=== PATIENT | male | born 1985 | race Caucasian/White ===

== ENCOUNTER 2017-01-30 13:11 | Inpatient (IN) | payer OTHER ==
[2017-01-30 14:34] VITALS: BMI 24.8
--- NOTE | 2017-01-30 16:21 | HP ---
CIWA Score - CIWA Score Nausea/Vomitin Muscle Tremors: 3 Anxiety: 3 Agitation: 3 Paroxysmal Sweats: 2 Orientation: 0-Oriented Tacttile Disturbances: 2-Mild Itch/Numbness/Burn Auditory Disturbances: 2-Mild Harshness/Frighten Visual Disturbances: 2-Mild Sensitivity Headache: 2-Mild CIWA-Ar Total Score: 22 Admission ROS [facility] - HPI Chief Complaint: i need help to stop drinking alcohol,cocaine,marijuana,mmtp 60 mgs/daymlast medicated today,has bottle to take home for 01/31/17 last treatment ,[facility] 11/11 completed hiv since 2007 history of add,anxiety and ptsd longest period of sobriety 18months nicotine dependence weight loss Allergies/Adverse Reactions: Allergies Allergy/AdvReac Type Severity Reaction Status Date / Time No Known Drug Allergies Allergy Verified 01/30/17 17:21 iv contrast Allergy Uncoded 01/30/17 16:25 History of Present Illness: this 31 years old male with alcohol,cocaine,cannabis dependence and heroin abused,seeking detox as mentioned - Ebola screening Have you traveled outside of the country in the last 21 days: No Have you had contact with anyone from an Ebola affected area: No Have you been sick,other than usual withdrawal symptoms: No Do you have a fever: No - Review of Systems Constitutional: Loss of Appetite, Malaise, Night Sweats, Changes in sleep, Weakness, Unintentional Wgt. Loss EENT: reports: Nose Congestion Respiratory: reports: No Symptoms reported Cardiac: reports: No Symptoms Reported GI: reports: Diarrhea, Nausea, Vomiting, Abdominal cramping : reports: No Symptoms Reported Musculoskeletal: reports: Back Pain, Muscle Pain Integumentary: reports: Dryness Neuro: reports: Headache, Tremors Endocrine: reports: No Symptoms Reported Hematology: reports: No Symptoms Reported Psychiatric: reports: other (ptsd,add,ptsd) Patient History - Patient Medical History Hx Anemia: No Hx Asthma: Yes (albureol inhaler) Hx Chronic Obstructive Pulmonary Disease (COPD): No Hx Cancer: No Hx Cardiac Disorders: No Hx Congestive Heart Failure: No Hx Hypertension: No Hx Hypercholesterolemia: No Hx Pacemaker: No HX Cerebrovascular Accident: No Hx Seizures: Yes (last 16 years ago) Hx Dementia: No Hx Diabetes: No Hx Gastrointestinal Disorders: No Hx Liver Disease: No Hx Genitourinary Disorders: No Hx Sexually Transmitted Disorders: No Hx Renal Disease (ESRD): No Hx Thyroid Disease: No Hx Human Immunodeficiency Virus (HIV): Yes (since 2007) Hx Hepatitis C: No Hx Depression: No Hx Suicide Attempt: No Hx Bipolar Disorder: No Hx Schizophrenia: No Other Medical History: anxiety,ptsd,add - Patient Surgical History Past Surgical History: Yes Other Surgical History: fracture of mandibles 8 weeks ago liliana lebranon numbness of chin - PPD History Previous Implant?: Yes Documented Results: Negative w/o proof PPD to be Administered?: Yes - Smoking Cessation Smoking history: Current every day smoker Aproximately how many cigarettes per day: 20 Hx Chewing Tobacco Use: No Initiated information on smoking cessation: Yes 'Breaking Loose' booklet given: 01/30/17 - Substance & Tx. History Hx Alcohol Use: Yes Hx Substance Use: Yes Substance Use Type: Alcohol, Cocaine, Marijuana Hx Substance Use Treatment: Yes ([facility] in 11/11) - Substances Abused Alcohol Route: Oral Frequency: Daily Amount used: 3pints of vodka/6 of 12 ozs of beer Age of first use: 14 Date of Last Use: 01/29/17 Cocaine Route: Injection Frequency: Daily Amount used: 50$ Age of first use: 16 Date of Last Use: 01/29/17 Marijuana/Hashish Route: Smoking Frequency: 3-6 times per week Amount used: 5$ Age of first use: 10 Date of Last Use: 01/26/17 Heroin Route: Injection Frequency: Daily Amount used: 8 to 12 bags Age of first use: 16 Date of Last Use: 01/29/17 Family Disease History - Family Disease History Family History: Denies Admission Physical Exam [facility] - Vital Signs Vital Signs: Vital Signs - 24 hr 01/30/17 14:31 Temperature 97.1 F L Pulse Rate 79 Respiratory 20 Rate Blood Pressure 126/71 - Physical General Appearance: Yes: Moderate Distress, Tremorous, Irritable, Sweating, Anxious HEENTM: Yes: Normal ENT Inspection, MEHNAZ, Pharynx Normal Respiratory: Yes: Lungs Clear, Normal Breath Sounds, No Respiratory Distress Neck: Yes: Within Normal Limits, Supple, Trachea in good position Breast: Yes: Within Normal Limits Cardiology: Yes: Within Normal Limits, Regular Rhythm, Regular Rate, S1, S2 Abdominal: Yes: Within Normal Limits, Normal Bowel Sounds, Non Tender, Soft Genitourinary: Yes: Within Normal Limits Back: Yes: Muscle Spasm Musculoskeletal: Yes: Back pain, Muscle Pain Extremities: Yes: Tremors Neurological: Yes: barrel plater II-XII NML intact, Fully Oriented, Alert, Motor Strength 5/5 Integumentary: Yes: Dry, Track Meza - Diagnostic (1) Alcohol dependence with uncomplicated withdrawal Current Visit: Yes Status: Acute (2) Cocaine dependence Current Visit: Yes Status: Acute (3) Cannabis dependence Current Visit: Yes Status: Acute (4) Methadone maintenance therapy patient Current Visit: Yes Status: Acute (5) Asthma Current Visit: Yes Status: Acute (6) HIV (human immunodeficiency virus infection) Current Visit: Yes Status: Acute (7) Neuropathy Current Visit: Yes Status: Acute (8) Heroin abuse Current Visit: Yes Status: Acute (9) Anxiety Current Visit: Yes Status: Acute (10) ADD (attention deficit disorder) Current Visit: Yes Status: Acute (11) PTSD (post-traumatic stress disorder) Current Visit: Yes Status: Acute (12) History of mandibular surgery Current Visit: Yes Status: Acute Cleared for Admission [facility] - Detox or Rehab [facility] Level of Care: Medically Managed Detox Regimen/Protocol: Valium [facility] Breath Alcohol Content Breath Alcohol Content: 0 Urine Drug Screen - Results Drug Screen Negative: No Urine Drug Screen Results: THC-Marijuana, CHAD-Cocaine, OPI-Opiates, BAR- Barbiturates, MTD-Methadone
[2017-01-30] MEDS ORDERED: MAG HYDROX/AL HYDROX/SIMETH 30 ML UNIT-DOSE CUP PO PRN (16:47)
[2017-01-30] MEDS ORDERED: diazePAM 5 MG TABLET PO ONE (16:47)
[2017-01-30] MEDS ORDERED: LOPERAMIDE HCL 2 MG CAPSULE PO PRN (16:47)
[2017-01-30] MEDS ORDERED: MAGNESIUM CITRATE 300 ML BOTTLE PO PRN (16:47)
[2017-01-30] MEDS ORDERED: ACETAMINOPHEN 325 MG TABLET (FP) PO PRN (16:47)
[2017-01-30] MEDS ORDERED: guaiFENesin/D-METHORPHAN HB 10 ML UNIT-DOSE CUPS PO PRN (16:47)
[2017-01-30] MEDS ORDERED: hydrOXYzine PAMOATE 50 MG CAPSULE (FP) PO PRN (16:47)
[2017-01-30] MEDS ORDERED: diphenhydrAMINE HCL 50 MG CAPSULE PO PRN (16:47)
[2017-01-30] MEDS ORDERED: P-EPHED 60MG/TRIPROLIDI 2.5MG TABLET PO PRN (16:47)
[2017-01-30] MEDS ORDERED: MAGNESIUM HYDROX 2400MG/30ML ORAL SUSPENSION 30 ML CUP PO PRN (16:47)
[2017-01-30] MEDS ORDERED: IBUPROFEN 400 MG TABLET (FP) PO PRN (16:47)
[2017-01-30] MEDS ORDERED: MENTHOL/PHENOL 1 EACH UD MM PRN (16:47)
[2017-01-30] MEDS: NICOTINE 21 MG/24 HOURS TOPICAL PATCH TD SCH (18:23)
[2017-01-30] MEDS: NICOTINE POLACRILEX 2 MG GUM BUC PRN ×2 (18:25→22:44)
[2017-01-30] MEDS ORDERED: ALBUTEROL SO4 6.7 GM HFA INHALER IH PRN (19:00)
[2017-01-30] MEDS: GABAPENTIN 400 MG CAPSULE (FP) PO SCH (22:43)
[2017-01-30] MEDS: diazePAM 5 MG TABLET PO SCH (22:43)
[2017-01-30] MEDS: THIAMINE HCL 100 MG TABLET (FP) PO SCH (22:43)
[2017-01-30 22:55] LABS: URINE APPEARANCE SLCLOUDY; URINE BILIRUBIN NEGATIVE (NEGATIVE); URINE BLOOD NEGATIVE (NEGATIVE); URINE COLOR YELLOW; URINE GLUCOSE (UA) NEGATIVE (NEGATIVE); URINE KETONE NEGATIVE (NEGATIVE); URINE LEUK ESTERASE TRACE (NEGATIVE); URINE NITRITE NEGATIVE (NEGATIVE); URINE PROTEIN NEGATIVE (NEGATIVE); URINE UROBILINOGEN NEGATIVE mg/dL (0.2-1.0)
[2017-01-30 23:15] LABS: URINE HYALINE CAST 52 /lpf; URINE MUCUS MANY; URINE WBC 1 /hpf (3-5)
[2017-01-31] MEDS ORDERED: METHADONE HCL 40 MG DISPERSABLE TABLET ONE (05:09)
[2017-01-31] MEDS ORDERED: METHADONE HCL 10 MG TABLET ONE (05:10)
[2017-01-31] MEDS: diazePAM 5 MG TABLET PO SCH ×3 (05:27→22:51)
[2017-01-31] MEDS: GABAPENTIN 400 MG CAPSULE (FP) PO SCH ×3 (05:27→22:51)
[2017-01-31] MEDS: NICOTINE POLACRILEX 2 MG GUM BUC PRN ×4 (05:30→18:29)
[2017-01-31] MEDS ORDERED: METHADONE HCL 10 MG TABLET PO ONE (06:00)
[2017-01-31] MEDS ORDERED: METHADONE 40 MG, METHADONE 20 MG PO ONE (06:00)
[2017-01-31 09:25] LABS: MCHC 33.5 g/dl (32.0-35.9); MEAN CELL VOLUME 89.7 fl (80-96); MEAN PLT VOLUME 8.6 fl (7.5-11.1); PLATELET COUNT 250 K/MM3 (134-434); RDW 14.7 % (11.9-15.9); WHITE BLOOD COUNT 4.7 K/mm3 (4.0-10.0)
[2017-01-31 09:47] LABS: ALBUMIN 2.9 g/dl (3.4-5.0); ANION GAP 5 (8-16); BILIRUBIN,TOTAL 0.1 mg/dL (0.2-1.0); CO2 31 mmol/L (21-32); CREATININE 0.7 mg/dL (0.7-1.3); GLUCOSE,RANDOM 86 mg/dL (74-106); SGOT/AST 18 U/L (15-37); SGPT/ALT 20 U/L (12-78)
[2017-01-31 09:48] LABS: ALK PHOS 79 U/L (45-117)
[2017-01-31] MEDS: NICOTINE 21 MG/24 HOURS TOPICAL PATCH TD SCH (10:38)
[2017-01-31] MEDS: PRENATAL VITAMINS W/ FOLIC ACID TABLET (FP) PO SCH (10:38)
[2017-01-31] MEDS: diazePAM 5 MG TABLET PO PRN ×2 (10:40→18:28)
--- NOTE | 2017-01-31 11:52 | PN ---
S CIWA - CIWA Score Nausea/Vomitin Muscle Tremors: 3 Anxiety: 3 Agitation: 2 Paroxysmal Sweats: 2 Orientation: 0-Oriented Tacttile Disturbances: 1-Very Mild Itch/Numbness Auditory Disturbances: 1-Very Mild Visual Disturbances: 1-Very Mild Sensitivity Headache: 2-Mild CIWA-Ar Total Score: 18 S Progress Note (SOAP) Subjective: ALERT,IRRITABLE,ANXIOUS,INTERRUPTED SLEEP,TREMOR,PAIN IN THE BODY Objective: 01/31/17 11:49 Vital Signs Temperature 97.7 F 01/31/17 10:28 Pulse Rate 78 01/31/17 10:28 Respiratory Rate 16 01/31/17 10:28 Blood Pressure 113/62 01/31/17 10:28 O2 Sat by Pulse Oximetry (%) EKG NSR 62/MIN Laboratory Last Values WBC 4.7 K/mm3 (4.0-10.0) 01/31/17 07:40 RBC 4.30 M/mm3 (4.00-5.60) 01/31/17 07:40 Hgb 12.9 GM/dL (11.7-16.9) 01/31/17 07:40 Hct 38.5 % (35.4-49) 01/31/17 07:40 MCV 89.7 fl (80-96) 01/31/17 07:40 MCH 30.0 pg (25.7-33.7) 01/31/17 07:40 MCHC 33.5 g/dl (32.0-35.9) 01/31/17 07:40 RDW 14.7 % (11.9-15.9) 01/31/17 07:40 Plt Count 250 K/MM3 (134-434) 01/31/17 07:40 MPV 8.6 fl (7.5-11.1) 01/31/17 07:40 Sodium 140 mmol/L (136-145) 01/31/17 07:40 Potassium 3.9 mmol/L (3.5-5.1) 01/31/17 07:40 Chloride 104 mmol/L (98-107) 01/31/17 07:40 Carbon Dioxide 31 mmol/L (21-32) 01/31/17 07:40 Anion Gap 5 (8-16) L 01/31/17 07:40 BUN 7 mg/dL (7-18) 01/31/17 07:40 Creatinine 0.7 mg/dL (0.7-1.3) 01/31/17 07:40 Creat Clearance w eGFR > 60 (>60) 01/31/17 07:40 Random Glucose 86 mg/dL (74-106) 01/31/17 07:40 Calcium 8.0 mg/dL (8.5-10.1) L 01/31/17 07:40 Total Bilirubin 0.1 mg/dL (0.2-1.0) L 01/31/17 07:40 AST 18 U/L (15-37) 01/31/17 07:40 ALT 20 U/L (12-78) 01/31/17 07:40 Alkaline Phosphatase 79 U/L (45-117) 01/31/17 07:40 Total Protein 6.0 g/dl (6.4-8.2) L 01/31/17 07:40 Albumin 2.9 g/dl (3.4-5.0) L 01/31/17 07:40 Urine Color Yellow 01/30/17 22:40 Urine Appearance Slcloudy 01/30/17 22:40 Urine pH 6.0 (5.0-8.0) 01/30/17 22:40 Ur Specific Ages [place] 1.025 (1.005-1.025) 01/30/17 22:40 Urine Protein Negative (NEGATIVE) 01/30/17 22:40 Urine Glucose (UA) Negative (NEGATIVE) 01/30/17 22:40 Urine Ketones Negative (NEGATIVE) 01/30/17 22:40 Urine Blood Negative (NEGATIVE) 01/30/17 22:40 Urine Nitrite Negative (NEGATIVE) 01/30/17 22:40 Urine Bilirubin Negative (NEGATIVE) 01/30/17 22:40 Urine Urobilinogen Negative mg/dL (0.2-1.0) 01/30/17 22:40 Ur Leukocyte Esterase Trace (NEGATIVE) 01/30/17 22:40 Urine RBC None /hpf (0-3) 01/30/17 22:40 Urine WBC 1 /hpf (3-5) 01/30/17 22:40 Ur Epithelial Cells Rare /hpf (FEW) 01/30/17 22:40 Hyaline Casts 52 /lpf 01/30/17 22:40 Urine Mucus Many 01/30/17 22:40 Assessment: 01/31/17 11:50 WITHDRAWAL SYMPTOM Plan: CONTINUE DETOX
[2017-01-31] MEDS: THIAMINE HCL 100 MG TABLET (FP) PO SCH (22:52)
[2017-02-01] MEDS: GABAPENTIN 400 MG CAPSULE (FP) PO SCH ×3 (06:04→22:17)
[2017-02-01] MEDS: diazePAM 5 MG TABLET PO PRN ×3 (06:04→18:11)
[2017-02-01] MEDS ORDERED: METHADONE HCL 10 MG TABLET PO SCH (08:30)
[2017-02-01] MEDS ORDERED: METHADONE HCL 40 MG DISPERSABLE TABLET ONE (09:22)
[2017-02-01] MEDS ORDERED: METHADONE HCL 10 MG TABLET ONE (09:23)
[2017-02-01] MEDS: METHADONE 40 MG, METHADONE 20 MG PO SCH (09:35)
[2017-02-01] MEDS: PRENATAL VITAMINS W/ FOLIC ACID TABLET (FP) PO SCH (10:27)
[2017-02-01] MEDS: NICOTINE 21 MG/24 HOURS TOPICAL PATCH TD SCH (10:27)
[2017-02-01] MEDS: EMTRICITAB/RILPIVIRINE/TENOFOV 1 EACH TABLET PO SCH (10:27)
[2017-02-01] MEDS: PREGABALIN 75 MG CAPSULE PO SCH ×2 (10:29→22:16)
[2017-02-01] MEDS: diazePAM 5 MG TABLET PO SCH ×2 (10:29→22:16)
[2017-02-01] MEDS: NICOTINE POLACRILEX 2 MG GUM BUC PRN ×3 (10:30→22:19)
--- NOTE | 2017-02-01 11:10 | PN ---
S CIWA - CIWA Score Nausea/Vomitin Muscle Tremors: 3 Anxiety: 3 Agitation: 2 Paroxysmal Sweats: 1-Minimal Palms Moist Orientation: 0-Oriented Tacttile Disturbances: 1-Very Mild Itch/Numbness Auditory Disturbances: 1-Very Mild Visual Disturbances: 1-Very Mild Sensitivity Headache: 1-Very Mild CIWA-Ar Total Score: 16 BHS Progress Note (SOAP) Subjective: alert,irritable,anxious,interrupted sleep,tremor Objective: 02/01/17 11:09 Vital Signs Temperature 98.4 F 02/01/17 09:55 Pulse Rate 76 02/01/17 09:55 Respiratory Rate 18 02/01/17 09:55 Blood Pressure 116/74 02/01/17 09:55 O2 Sat by Pulse Oximetry (%) Assessment: 02/01/17 11:10 withdrawal symptom Plan: continue detox
--- NOTE | 2017-02-01 11:13 | CONSULT ---
[facility] Psychiatric Consult - Data Date of interview: 02/01/17 Admission source: [facility] Identifying data: This is 31 years old male with no psychiatoirc hospoitalization history intoxicated with: Alcohol, Cocaine, Heroin and Nicotine Substance Abuse History: - Smoking Cessation. Smoking history: Current every day smoker. Aproximately how many cigarettes per day: 20. Hx Chewing Tobacco Use: No. Initiated information on smoking cessation: Yes. 'Breaking Loose' booklet given: 01/30/17. - Substance & Tx. History. Hx Alcohol Use: Yes. Hx Substance Use: Yes. Substance Use Type: Alcohol, Cocaine, Marijuana. Hx Substance Use Treatment: Yes ([facility] in 11/11). - Substances Abused. Alcohol. Route: Oral. Frequency: Daily. Amount used: 3pints of vodka/6 of 12 ozs of beer. Age of first use: 14. Date of Last Use: 01/29/17. Cocaine. Route: Injection. Frequency: Daily. Amount used: 50$. Age of first use: 16. Date of Last Use: 01/29/17. Marijuana/Hashish. Route: Smoking. Frequency: 3-6 times per week. Amount used: 5$. Age of first use: 10. Date of Last Use: 01/26. Heroin. Route: Injection. Frequency: Daily. Amount used: 8 to 12 bags. Age of first use: 16. Date of Last Use: 01/29/17 Medical History: HIV+, Asthma, Mandibular fracture s/p, MMTP 60MG PER DAY Psychiatric History: Patient reports history of depression and anxiety, PTSD, ADHD. REPORTS TAKING PRIOR MTO ADMISSION: LYRICA 150MG PO BID. GABAPENTIN 800MG PO TID. ADDERAL 20MG PO BID Physical/Sexual Abuse/Trauma History: Denies Additional Comment: LYRICA 150MG PO BID. GABAPENTIN 800MG PO TID Mental Status Exam - Mental Status Exam Alert and Oriented to: Person Cognitive Function: Fair Patient Appearance: Unkempt Mood: Anxious Affect: Mood Congruent Patient Behavior: Cooperative Speech Pattern: Appropriate Voice Loudness: Mildly Loud Thought Process: Goal Oriented Thought Disorder: Being Controlled Hallucinations: Denies Suicidal Ideation: Denies Homicidal Ideation: Denies Sleep: Difficulty falling asleep Appetite: Weight loss Muscle strength/Tone: Mild Hypotonicity Gait/Station: Shuffling Additional Comments: LYRICA 150MG PO BID. GABAPENTIN 800MG PO TID. ADDERAL 20MG PO BID Psychiatric Findings - Problem List ([place] 1, 2,3) (1) ADD (attention deficit disorder) Current Visit: Yes Status: Acute (2) Alcohol dependence with uncomplicated withdrawal Current Visit: Yes Status: Acute (3) Cannabis dependence Current Visit: Yes Status: Acute (4) Cocaine dependence Current Visit: Yes Status: Acute (5) HIV (human immunodeficiency virus infection) Current Visit: Yes Status: Acute (6) Heroin abuse Current Visit: Yes Status: Acute (7) Methadone maintenance therapy patient Current Visit: Yes Status: Acute (8) PTSD (post-traumatic stress disorder) Current Visit: Yes Status: Acute (9) Drug-induced mood disorder Current Visit: Yes Status: Acute - Initial Treatment Plan Initial Treatment Plan: LYRICA 150MG PO BID
[2017-02-01] MEDS ORDERED: GABAPENTIN 400 MG CAPSULE (FP) PO SCH (14:00)
[2017-02-01] MEDS: THIAMINE HCL 100 MG TABLET (FP) PO SCH (22:16)
[2017-02-02] MEDS ORDERED: METHADONE HCL 40 MG DISPERSABLE TABLET ONE (05:13)
[2017-02-02] MEDS ORDERED: METHADONE HCL 10 MG TABLET ONE (05:14)
[2017-02-02] MEDS: METHADONE 40 MG, METHADONE 20 MG PO SCH (05:37)
[2017-02-02] MEDS: GABAPENTIN 400 MG CAPSULE (FP) PO SCH ×3 (05:38→22:22)
[2017-02-02] MEDS: NICOTINE POLACRILEX 2 MG GUM BUC PRN ×4 (05:40→22:24)
[2017-02-02] MEDS: EMTRICITAB/RILPIVIRINE/TENOFOV 1 EACH TABLET PO SCH (07:21)
[2017-02-02] MEDS: PRENATAL VITAMINS W/ FOLIC ACID TABLET (FP) PO SCH (10:38)
[2017-02-02] MEDS: PREGABALIN 75 MG CAPSULE PO SCH ×2 (10:38→22:23)
[2017-02-02] MEDS: diazePAM 5 MG TABLET PO SCH ×2 (10:39→22:22)
[2017-02-02] MEDS: NICOTINE 21 MG/24 HOURS TOPICAL PATCH TD SCH (10:39)
--- NOTE | 2017-02-02 10:42 | PN ---
S Progress Note (SOAP) Subjective: ALERT,IRRITABLE,ANXIOUS,INTERRUPTED SLEEP Objective: 02/02/17 10:41 Vital Signs Temperature 98.1 F 02/02/17 06:00 Pulse Rate 62 02/02/17 06:00 Respiratory Rate 18 02/02/17 06:00 Blood Pressure 120/72 02/02/17 06:00 O2 Sat by Pulse Oximetry (%) Assessment: 02/02/17 10:41 WITHDRAWAL SYMPTOM Plan: CONTINUE DETOX,DISCHARGE IN AM
[2017-02-02] MEDS: diazePAM 5 MG TABLET PO PRN (14:35)
[2017-02-02] MEDS: THIAMINE HCL 100 MG TABLET (FP) PO SCH (22:22)
[2017-02-03] MEDS ORDERED: METHADONE HCL 40 MG DISPERSABLE TABLET ONE (04:37)
[2017-02-03] MEDS ORDERED: METHADONE HCL 10 MG TABLET ONE (04:37)
[2017-02-03] MEDS: METHADONE 40 MG, METHADONE 20 MG PO SCH (05:55)
[2017-02-03] MEDS: GABAPENTIN 400 MG CAPSULE (FP) PO SCH (05:56)
[2017-02-03] MEDS: NICOTINE POLACRILEX 2 MG GUM BUC PRN ×3 (05:59→12:58)
[2017-02-03] MEDS: EMTRICITAB/RILPIVIRINE/TENOFOV 1 EACH TABLET PO SCH (07:54)
--- NOTE | 2017-02-03 08:34 | DS ---
[facility] Detox Discharge Summary Admission Date: 01/30/17 Discharge Date: 02/03/17 - History Present History: Alcohol Dependence, Cannabis Dependence, Cocaine Dependence Additional Comments: FOLLOW UP WITH [facility] Pertinent Past History: ASTHMA HIV NEUROPATHY HEROIN ABUSED ADD PTSD HISTORY OF SURGERY FOR FRACTURE OF THE MANDIBLE - Physical Exam Results Vital Signs: Vital Signs Temperature 97.3 F L 02/03/17 06:22 Pulse Rate 76 02/03/17 06:22 Respiratory Rate 18 02/03/17 06:22 Blood Pressure 125/73 02/03/17 06:22 O2 Sat by Pulse Oximetry (%) Pertinent Admission Physical Exam Findings: WITHDRAWAL SYMPTOM - Treatment Hospital Course: Detox Protocol Followed, Detoxed Safely, Responded well, Discharged Condition Good, Rehab Referral Accepted Patient has Accepted a Rehab Referral to: [facility] - Medication Discharge Medications: Ambulatory Orders Albuterol Sulfate Inhaler - [Ventolin Hfa Inhaler -] 1 - 2 inh PO QID 01/30/17 Dextroamphetamine/Amphetamine [Adderall Xr 30 mg Capsule] 30 mg PO DAILY Emtricitab/Rilpivirine/Tenofov [Complera -] 1 each PO DAILY 01/30/17 Gabapentin 800 mg PO TID 01/30/17 Pregabalin [Lyrica -] 150 mg PO BID 01/30/17 Gabapentin 800 mg PO TID #90 tablet 02/01/17 Pregabalin [Lyrica -] 150 mg PO BID #60 cap MDD 300 02/01/17 - Diagnosis (1) Alcohol dependence with uncomplicated withdrawal Current Visit: Yes Status: Acute (2) Cocaine dependence Current Visit: Yes Status: Acute (3) Cannabis dependence Current Visit: Yes Status: Acute (4) Methadone maintenance therapy patient Current Visit: Yes Status: Acute (5) Asthma Current Visit: Yes Status: Acute (6) HIV (human immunodeficiency virus infection) Current Visit: Yes Status: Acute (7) Neuropathy Current Visit: Yes Status: Acute (8) Heroin abuse Current Visit: Yes Status: Acute (9) Anxiety Current Visit: Yes Status: Acute (10) ADD (attention deficit disorder) Current Visit: Yes Status: Acute (11) PTSD (post-traumatic stress disorder) Current Visit: Yes Status: Acute (12) History of mandibular surgery Current Visit: Yes Status: Acute - AMA Did Patient Leave Against Medical Advice: No
[2017-02-03 09:57] VITALS: BP 154/84; PULSE 73; TEMP 97.7
[2017-02-03] MEDS ORDERED: diazePAM 5 MG TABLET PO SCH (10:00)
[2017-02-03] MEDS: PREGABALIN 75 MG CAPSULE PO SCH (10:06)
[2017-02-03] MEDS: PRENATAL VITAMINS W/ FOLIC ACID TABLET (FP) PO SCH (10:06)
[2017-02-03] MEDS: NICOTINE 21 MG/24 HOURS TOPICAL PATCH TD SCH (10:07)
--- NOTE | 2017-02-03 14:55 | EKG ---
Test Reason : Blood Pressure : / mmHG Vent. Rate : 062 BPM Atrial Rate : 062 BPM P-R Int : 142 ms QRS Dur : 108 ms QT Int : 424 ms P-R-T Axes : 047 060 027 degrees QTc Int : 430 ms NORMAL SINUS RHYTHM INCOMPLETE RIGHT BUNDLE BRANCH BLOCK BORDERLINE ECG NO PREVIOUS ECGS AVAILABLE Confirmed by MEGA DUENAS, MERLENE ([id number]) on 02/03/2017 2:54:27 PM Referred By: Confirmed By:MERLENE AYOUB MD
== END 2017-02-03 13:00 | disposition other institution (70) | DRG 773 ==
LOC: YASAS 13:11 → Y6N 17:10
PROVIDERS: ADMIT Internal Medicine; ATTEND Internal Medicine
PROC: HZ2ZZZZ Detoxification Services for Substance Abuse Treatment (ICD-10-PCS; principal; 2017-01-30)
DX: F10.230 Alcohol dependence with withdrawal, uncomplicated (principal); F11.20 Opioid dependence, uncomplicated; F14.20 Cocaine dependence, uncomplicated; F12.20 Cannabis dependence, uncomplicated; F17.210 Nicotine dependence, cigarettes, uncomplicated; F41.9 Anxiety disorder, unspecified; F90.9 Attention-deficit hyperactivity disorder, unspecified type; F43.10 Post-traumatic stress disorder, unspecified; F19.24 Other psychoactive substance dependence with psychoactive substance-induced mood disorder; J45.909 Unspecified asthma, uncomplicated; Z21 Asymptomatic human immunodeficiency virus [HIV] infection status; G62.9 Polyneuropathy, unspecified; Z91.041 Radiographic dye allergy status; Z86.69 Personal history of other diseases of the nervous system and sense organs
CPT/HCPCS: 36415; 80053; 81003; 81015; 85027; 86593; 93005; 93010

== ENCOUNTER 2017-02-03 13:12 | Inpatient (IN) | payer OTHER ==
[2017-02-03] MEDS ORDERED: IBUPROFEN 400 MG TABLET (FP) PO PRN (14:48)
[2017-02-03] MEDS ORDERED: P-EPHED 60MG/TRIPROLIDI 2.5MG TABLET PO PRN (14:48)
[2017-02-03] MEDS ORDERED: ACETAMINOPHEN 325 MG TABLET (FP) PO PRN (14:48)
[2017-02-03] MEDS ORDERED: diphenhydrAMINE HCL 50 MG CAPSULE PO PRN (14:48)
[2017-02-03] MEDS ORDERED: MAG HYDROX/AL HYDROX/SIMETH 30 ML UNIT-DOSE CUP PO PRN (14:48)
[2017-02-03] MEDS ORDERED: MENTHOL/PHENOL 1 EACH UD MM PRN (14:48)
[2017-02-03] MEDS ORDERED: MAGNESIUM CITRATE 300 ML BOTTLE PO PRN (14:48)
[2017-02-03] MEDS ORDERED: MAGNESIUM HYDROX 2400MG/30ML ORAL SUSPENSION 30 ML CUP PO PRN (14:48)
[2017-02-03] MEDS ORDERED: guaiFENesin/D-METHORPHAN HB 10 ML UNIT-DOSE CUPS PO PRN (14:48)
[2017-02-03] MEDS ORDERED: hydrOXYzine PAMOATE 25 MG CAPSULE (FP) PO PRN (14:48)
[2017-02-03] MEDS ORDERED: ALBUTEROL SO4 6.7 GM HFA INHALER IH PRN (14:53)
[2017-02-03] MEDS ORDERED: GABAPENTIN 400 MG CAPSULE (FP) PO ONE (16:30)
[2017-02-03] MEDS: NICOTINE POLACRILEX 2 MG GUM BUC PRN ×2 (16:32→21:43)
[2017-02-03] MEDS: GABAPENTIN 400 MG CAPSULE (FP) PO SCH (21:41)
[2017-02-03] MEDS: THIAMINE HCL 100 MG TABLET (FP) PO SCH (21:41)
[2017-02-04] MEDS ORDERED: METHADONE HCL 10 MG TABLET PO SCH (06:00)
[2017-02-04] MEDS ORDERED: METHADONE HCL 10 MG TABLET ONE (06:03)
[2017-02-04] MEDS ORDERED: METHADONE HCL 40 MG DISPERSABLE TABLET ONE (06:03)
[2017-02-04] MEDS: METHADONE 40 MG, METHADONE 20 MG PO SCH (06:20)
[2017-02-04] MEDS: NICOTINE POLACRILEX 2 MG GUM BUC PRN ×5 (06:22→21:09)
[2017-02-04] MEDS: GABAPENTIN 400 MG CAPSULE (FP) PO SCH ×3 (06:22→21:08)
[2017-02-04] MEDS: EMTRICITAB/RILPIVIRINE/TENOFOV 1 EACH TABLET PO SCH (07:05)
[2017-02-04] MEDS: PRENATAL VITAMINS W/ FOLIC ACID TABLET (FP) PO SCH (10:14)
[2017-02-04] MEDS: NICOTINE 21 MG/24 HOURS TOPICAL PATCH TD SCH (10:14)
[2017-02-04] MEDS: PREGABALIN 75 MG CAPSULE PO SCH ×2 (11:45→21:08)
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
[2017-02-04] MEDS: THIAMINE HCL 100 MG TABLET (FP) PO SCH (21:08)
[2017-02-05] MEDS ORDERED: METHADONE HCL 10 MG TABLET ONE (05:12)
[2017-02-05] MEDS ORDERED: METHADONE HCL 40 MG DISPERSABLE TABLET ONE (05:13)
[2017-02-05] MEDS: METHADONE 40 MG, METHADONE 20 MG PO SCH (06:21)
[2017-02-05] MEDS: GABAPENTIN 400 MG CAPSULE (FP) PO SCH ×3 (06:22→21:34)
[2017-02-05] MEDS: NICOTINE POLACRILEX 2 MG GUM BUC PRN ×3 (06:22→14:21)
[2017-02-05] MEDS: EMTRICITAB/RILPIVIRINE/TENOFOV 1 EACH TABLET PO SCH (07:14)
[2017-02-05] MEDS: PREGABALIN 75 MG CAPSULE PO SCH ×2 (09:58→21:32)
[2017-02-05] MEDS: PRENATAL VITAMINS W/ FOLIC ACID TABLET (FP) PO SCH (09:58)
[2017-02-05] MEDS: NICOTINE 21 MG/24 HOURS TOPICAL PATCH TD SCH (09:58)
--- NOTE | 2017-02-05 12:49 | PN ---
[facility] Progress Note Note: history of seizure for 15 years on phenobarb 60 mgs po bid medication ordered seizure precaution
--- NOTE | 2017-02-05 13:36 | PN ---
[facility] Progress Note Note: addendum patient has been taking phenobarb for 15 years and complera for 9 years.prescibed by his own primary care physician,stated his physician hes been monitored him on regular basis
[2017-02-05] MEDS: THIAMINE HCL 100 MG TABLET (FP) PO SCH (21:34)
[2017-02-05] MEDS: PHENobarbital 30 MG TABLET PO SCH (21:34)
[2017-02-05] MEDS ORDERED: PHENobarbital 30 MG TABLET PO SCH (22:00)
[2017-02-06] MEDS ORDERED: METHADONE HCL 10 MG TABLET ONE (03:10)
[2017-02-06] MEDS ORDERED: METHADONE HCL 40 MG DISPERSABLE TABLET ONE (03:10)
[2017-02-06] MEDS: NICOTINE POLACRILEX 2 MG GUM BUC PRN ×4 (06:25→21:36)
[2017-02-06] MEDS: GABAPENTIN 400 MG CAPSULE (FP) PO SCH ×3 (06:26→21:34)
[2017-02-06] MEDS: METHADONE 40 MG, METHADONE 20 MG PO SCH (06:26)
[2017-02-06] MEDS: EMTRICITAB/RILPIVIRINE/TENOFOV 1 EACH TABLET PO SCH (07:15)
[2017-02-06] MEDS: PRENATAL VITAMINS W/ FOLIC ACID TABLET (FP) PO SCH (10:05)
[2017-02-06] MEDS: PREGABALIN 75 MG CAPSULE PO SCH ×2 (10:05→21:34)
[2017-02-06] MEDS: NICOTINE 21 MG/24 HOURS TOPICAL PATCH TD SCH (10:05)
[2017-02-06] MEDS: PHENobarbital 30 MG TABLET PO SCH ×2 (10:06→21:35)
[2017-02-06] MEDS: THIAMINE HCL 100 MG TABLET (FP) PO SCH (21:34)
[2017-02-07] MEDS ORDERED: METHADONE HCL 10 MG TABLET ONE (03:48)
[2017-02-07] MEDS ORDERED: METHADONE HCL 40 MG DISPERSABLE TABLET ONE (03:49)
[2017-02-07] MEDS: GABAPENTIN 400 MG CAPSULE (FP) PO SCH ×3 (06:21→21:31)
[2017-02-07] MEDS: METHADONE 40 MG, METHADONE 20 MG PO SCH (06:21)
[2017-02-07] MEDS: NICOTINE POLACRILEX 2 MG GUM BUC PRN ×3 (06:23→21:32)
[2017-02-07] MEDS: EMTRICITAB/RILPIVIRINE/TENOFOV 1 EACH TABLET PO SCH (07:27)
[2017-02-07] MEDS: PRENATAL VITAMINS W/ FOLIC ACID TABLET (FP) PO SCH (10:15)
[2017-02-07] MEDS: PREGABALIN 75 MG CAPSULE PO SCH ×2 (10:15→21:30)
[2017-02-07] MEDS: NICOTINE 21 MG/24 HOURS TOPICAL PATCH TD SCH (10:15)
[2017-02-07] MEDS: PHENobarbital 30 MG TABLET PO SCH ×2 (10:16→21:31)
[2017-02-07] MEDS: THIAMINE HCL 100 MG TABLET (FP) PO SCH (21:31)
[2017-02-08] MEDS ORDERED: METHADONE HCL 10 MG TABLET ONE (03:47)
[2017-02-08] MEDS ORDERED: METHADONE HCL 40 MG DISPERSABLE TABLET ONE (03:47)
[2017-02-08] MEDS: METHADONE 40 MG, METHADONE 20 MG PO SCH (06:26)
[2017-02-08] MEDS: GABAPENTIN 400 MG CAPSULE (FP) PO SCH ×3 (06:27→21:44)
[2017-02-08] MEDS: LOPERAMIDE HCL 2 MG CAPSULE PO PRN ×3 (06:53→21:46)
[2017-02-08] MEDS: EMTRICITAB/RILPIVIRINE/TENOFOV 1 EACH TABLET PO SCH (07:10)
[2017-02-08] MEDS: PHENobarbital 30 MG TABLET PO SCH ×2 (10:29→21:45)
[2017-02-08] MEDS: PREGABALIN 75 MG CAPSULE PO SCH ×2 (10:29→21:44)
[2017-02-08] MEDS: PRENATAL VITAMINS W/ FOLIC ACID TABLET (FP) PO SCH (10:30)
[2017-02-08] MEDS: NICOTINE 21 MG/24 HOURS TOPICAL PATCH TD SCH (10:30)
[2017-02-08] MEDS: NICOTINE POLACRILEX 2 MG GUM BUC PRN ×2 (10:31→14:16)
[2017-02-08] MEDS: THIAMINE HCL 100 MG TABLET (FP) PO SCH (21:44)
[2017-02-09] MEDS ORDERED: METHADONE HCL 10 MG TABLET ONE (03:47)
[2017-02-09] MEDS ORDERED: METHADONE HCL 40 MG DISPERSABLE TABLET ONE (03:47)
[2017-02-09] MEDS: METHADONE 40 MG, METHADONE 20 MG PO SCH (06:20)
[2017-02-09] MEDS: LOPERAMIDE HCL 2 MG CAPSULE PO PRN (06:21)
[2017-02-09] MEDS: GABAPENTIN 400 MG CAPSULE (FP) PO SCH ×3 (06:22→21:47)
[2017-02-09] MEDS: EMTRICITAB/RILPIVIRINE/TENOFOV 1 EACH TABLET PO SCH (07:49)
[2017-02-09] MEDS: PHENobarbital 30 MG TABLET PO SCH ×2 (10:32→21:48)
[2017-02-09] MEDS: PREGABALIN 75 MG CAPSULE PO SCH ×2 (10:32→21:48)
[2017-02-09] MEDS: PRENATAL VITAMINS W/ FOLIC ACID TABLET (FP) PO SCH (10:32)
[2017-02-09] MEDS: NICOTINE 21 MG/24 HOURS TOPICAL PATCH TD SCH (10:34)
[2017-02-09] MEDS: NICOTINE POLACRILEX 2 MG GUM BUC PRN ×3 (10:35→21:48)
--- NOTE | 2017-02-09 11:37 | PN ---
[facility] Progress Note Note: diarrhea ,jomar diet,observe
[2017-02-09] MEDS: THIAMINE HCL 100 MG TABLET (FP) PO SCH (21:48)
[2017-02-10] MEDS ORDERED: METHADONE HCL 10 MG TABLET ONE (03:22)
[2017-02-10] MEDS ORDERED: METHADONE HCL 40 MG DISPERSABLE TABLET ONE (03:22)
[2017-02-10] MEDS: METHADONE 40 MG, METHADONE 20 MG PO SCH (06:16)
[2017-02-10] MEDS: GABAPENTIN 400 MG CAPSULE (FP) PO SCH ×3 (06:16→22:06)
[2017-02-10] MEDS: NICOTINE POLACRILEX 2 MG GUM BUC PRN ×3 (06:20→14:09)
[2017-02-10] MEDS: EMTRICITAB/RILPIVIRINE/TENOFOV 1 EACH TABLET PO SCH (07:07)
[2017-02-10] MEDS: PREGABALIN 75 MG CAPSULE PO SCH ×2 (10:31→22:06)
[2017-02-10] MEDS: NICOTINE 21 MG/24 HOURS TOPICAL PATCH TD SCH (10:31)
[2017-02-10] MEDS: PRENATAL VITAMINS W/ FOLIC ACID TABLET (FP) PO SCH (10:31)
[2017-02-10] MEDS: PHENobarbital 30 MG TABLET PO SCH ×2 (10:32→22:06)
[2017-02-10] MEDS: LOPERAMIDE HCL 2 MG CAPSULE PO PRN ×2 (10:34→22:47)
[2017-02-10] MEDS: THIAMINE HCL 100 MG TABLET (FP) PO SCH (22:06)
[2017-02-11] MEDS ORDERED: METHADONE HCL 10 MG TABLET ONE (06:14)
[2017-02-11] MEDS ORDERED: METHADONE HCL 40 MG DISPERSABLE TABLET ONE (06:15)
[2017-02-11] MEDS: GABAPENTIN 400 MG CAPSULE (FP) PO SCH ×3 (06:30→21:28)
[2017-02-11] MEDS: METHADONE 40 MG, METHADONE 20 MG PO SCH (06:30)
[2017-02-11] MEDS: NICOTINE POLACRILEX 2 MG GUM BUC PRN ×4 (06:33→21:29)
[2017-02-11] MEDS: EMTRICITAB/RILPIVIRINE/TENOFOV 1 EACH TABLET PO SCH (07:25)
[2017-02-11] MEDS: PREGABALIN 75 MG CAPSULE PO SCH ×2 (10:30→21:28)
[2017-02-11] MEDS: PRENATAL VITAMINS W/ FOLIC ACID TABLET (FP) PO SCH (10:33)
[2017-02-11] MEDS: PHENobarbital 30 MG TABLET PO SCH ×2 (10:34→21:28)
[2017-02-11] MEDS: NICOTINE 21 MG/24 HOURS TOPICAL PATCH TD SCH (10:34)
[2017-02-11] MEDS: THIAMINE HCL 100 MG TABLET (FP) PO SCH (21:28)
[2017-02-12] MEDS ORDERED: METHADONE HCL 10 MG TABLET ONE (03:26)
[2017-02-12] MEDS ORDERED: METHADONE HCL 40 MG DISPERSABLE TABLET ONE (03:26)
[2017-02-12] MEDS: NICOTINE POLACRILEX 2 MG GUM BUC PRN ×3 (06:27→14:09)
[2017-02-12] MEDS: GABAPENTIN 400 MG CAPSULE (FP) PO SCH ×3 (06:27→21:34)
[2017-02-12] MEDS: METHADONE 40 MG, METHADONE 20 MG PO SCH (06:27)
[2017-02-12] MEDS: PHENobarbital 30 MG TABLET PO SCH ×3 (06:27→21:37)
[2017-02-12] MEDS: EMTRICITAB/RILPIVIRINE/TENOFOV 1 EACH TABLET PO SCH (07:00)
[2017-02-12] MEDS: PRENATAL VITAMINS W/ FOLIC ACID TABLET (FP) PO SCH (10:09)
[2017-02-12] MEDS: NICOTINE 21 MG/24 HOURS TOPICAL PATCH TD SCH (10:09)
[2017-02-12] MEDS: PREGABALIN 75 MG CAPSULE PO SCH ×2 (10:09→21:34)
[2017-02-12] MEDS: THIAMINE HCL 100 MG TABLET (FP) PO SCH (21:34)
[2017-02-13] MEDS ORDERED: METHADONE HCL 40 MG DISPERSABLE TABLET ONE (03:27)
[2017-02-13] MEDS ORDERED: METHADONE HCL 10 MG TABLET ONE (03:27)
[2017-02-13] MEDS: GABAPENTIN 400 MG CAPSULE (FP) PO SCH ×3 (06:46→21:23)
[2017-02-13] MEDS: METHADONE 40 MG, METHADONE 20 MG PO SCH (06:46)
[2017-02-13] MEDS: NICOTINE POLACRILEX 2 MG GUM BUC PRN ×4 (06:46→21:24)
[2017-02-13] MEDS: EMTRICITAB/RILPIVIRINE/TENOFOV 1 EACH TABLET PO SCH (07:08)
[2017-02-13] MEDS: NICOTINE 21 MG/24 HOURS TOPICAL PATCH TD SCH (10:08)
[2017-02-13] MEDS: PRENATAL VITAMINS W/ FOLIC ACID TABLET (FP) PO SCH (10:08)
[2017-02-13] MEDS: PHENobarbital 30 MG TABLET PO SCH ×2 (10:08→21:23)
[2017-02-13] MEDS: PREGABALIN 75 MG CAPSULE PO SCH ×2 (10:08→21:23)
[2017-02-13] MEDS: THIAMINE HCL 100 MG TABLET (FP) PO SCH (21:22)
[2017-02-14] MEDS ORDERED: METHADONE HCL 40 MG DISPERSABLE TABLET ONE (03:32)
[2017-02-14] MEDS ORDERED: METHADONE HCL 10 MG TABLET ONE (03:32)
[2017-02-14] MEDS: GABAPENTIN 400 MG CAPSULE (FP) PO SCH ×3 (06:27→21:28)
[2017-02-14] MEDS: METHADONE 40 MG, METHADONE 20 MG PO SCH (06:27)
[2017-02-14] MEDS: EMTRICITAB/RILPIVIRINE/TENOFOV 1 EACH TABLET PO SCH (07:04)
[2017-02-14] MEDS: PHENobarbital 30 MG TABLET PO SCH ×2 (10:23→21:28)
[2017-02-14] MEDS: PRENATAL VITAMINS W/ FOLIC ACID TABLET (FP) PO SCH (10:23)
[2017-02-14] MEDS: PREGABALIN 75 MG CAPSULE PO SCH ×2 (10:23→21:29)
[2017-02-14] MEDS: NICOTINE 21 MG/24 HOURS TOPICAL PATCH TD SCH (10:24)
[2017-02-14] MEDS: NICOTINE POLACRILEX 2 MG GUM BUC PRN ×2 (10:26→14:17)
[2017-02-14] MEDS: THIAMINE HCL 100 MG TABLET (FP) PO SCH (21:29)
[2017-02-15] MEDS ORDERED: METHADONE HCL 10 MG TABLET ONE (05:24)
[2017-02-15] MEDS ORDERED: METHADONE HCL 40 MG DISPERSABLE TABLET ONE (05:25)
[2017-02-15] MEDS: METHADONE 40 MG, METHADONE 20 MG PO SCH (06:32)
[2017-02-15] MEDS: GABAPENTIN 400 MG CAPSULE (FP) PO SCH ×3 (06:32→21:47)
[2017-02-15] MEDS: NICOTINE POLACRILEX 2 MG GUM BUC PRN ×4 (06:33→21:50)
[2017-02-15] MEDS: EMTRICITAB/RILPIVIRINE/TENOFOV 1 EACH TABLET PO SCH (07:13)
[2017-02-15] MEDS: NICOTINE 21 MG/24 HOURS TOPICAL PATCH TD SCH (10:26)
[2017-02-15] MEDS: PHENobarbital 30 MG TABLET PO SCH ×2 (10:26→21:47)
[2017-02-15] MEDS: PREGABALIN 75 MG CAPSULE PO SCH ×2 (10:26→21:47)
[2017-02-15] MEDS: PRENATAL VITAMINS W/ FOLIC ACID TABLET (FP) PO SCH (10:26)
[2017-02-15] MEDS: THIAMINE HCL 100 MG TABLET (FP) PO SCH (21:48)
[2017-02-16] MEDS ORDERED: METHADONE HCL 10 MG TABLET ONE (03:24)
[2017-02-16] MEDS ORDERED: METHADONE HCL 40 MG DISPERSABLE TABLET ONE (03:25)
[2017-02-16] MEDS: METHADONE 40 MG, METHADONE 20 MG PO SCH (06:22)
[2017-02-16] MEDS: GABAPENTIN 400 MG CAPSULE (FP) PO SCH (06:23)
[2017-02-16] MEDS: NICOTINE POLACRILEX 2 MG GUM BUC PRN (06:24)
[2017-02-16 06:59] VITALS: BP 122/70; PULSE 59; TEMP 98.1
[2017-02-16] MEDS: EMTRICITAB/RILPIVIRINE/TENOFOV 1 EACH TABLET PO SCH (07:01)
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
[2017-02-16] MEDS: PREGABALIN 75 MG CAPSULE PO SCH (10:17)
[2017-02-16] MEDS: PRENATAL VITAMINS W/ FOLIC ACID TABLET (FP) PO SCH (10:17)
[2017-02-16] MEDS: PHENobarbital 30 MG TABLET PO SCH (10:17)
[2017-02-16] MEDS: NICOTINE 21 MG/24 HOURS TOPICAL PATCH TD SCH (10:18)
== END 2017-02-16 10:30 | disposition home or self-care (01) | DRG 772 ==
LOC: YASAS 13:12 → Y5N 13:13
PROVIDERS: ADMIT Psychiatry & Neurology Psychiatry; ATTEND Psychiatry & Neurology Psychiatry
PROC: HZ42ZZZ Group Counseling for Substance Abuse Treatment, Cognitive-Behavioral (ICD-10-PCS; principal; 2017-02-16)
DX: F11.20 Opioid dependence, uncomplicated (principal); F14.20 Cocaine dependence, uncomplicated; F12.20 Cannabis dependence, uncomplicated; F43.10 Post-traumatic stress disorder, unspecified; F98.8 Other specified behavioral and emotional disorders with onset usually occurring in childhood and adolescence; G62.9 Polyneuropathy, unspecified; J45.20 Mild intermittent asthma, uncomplicated; Z87.828 Personal history of other (healed) physical injury and trauma

== ENCOUNTER 2017-04-12 14:23 | Inpatient (IN) | payer OTHER ==
[2017-04-12 18:48] VITALS: BMI 24.7
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
[2017-04-12] MEDS ORDERED: MAGNESIUM HYDROX 2400MG/30ML ORAL SUSPENSION 30 ML CUP PO PRN (21:20)
[2017-04-12] MEDS ORDERED: diphenhydrAMINE HCL 50 MG CAPSULE PO PRN (21:20)
[2017-04-12] MEDS ORDERED: MAG HYDROX/AL HYDROX/SIMETH 30 ML UNIT-DOSE CUP PO PRN (21:20)
[2017-04-12] MEDS ORDERED: guaiFENesin/D-METHORPHAN HB 10 ML UNIT-DOSE CUPS PO PRN (21:20)
[2017-04-12] MEDS ORDERED: MENTHOL/PHENOL 1 EACH UD MM PRN (21:20)
[2017-04-12] MEDS ORDERED: MAGNESIUM CITRATE 300 ML BOTTLE PO PRN (21:20)
[2017-04-12] MEDS ORDERED: ACETAMINOPHEN 325 MG TABLET (FP) PO PRN (21:20)
[2017-04-12] MEDS ORDERED: IBUPROFEN 400 MG TABLET (FP) PO PRN (21:20)
[2017-04-12] MEDS ORDERED: LOPERAMIDE HCL 2 MG CAPSULE PO PRN (21:20)
[2017-04-12] MEDS ORDERED: P-EPHED 60MG/TRIPROLIDI 2.5MG TABLET PO PRN (21:20)
[2017-04-12] MEDS ORDERED: ALBUTEROL SO4 18 GM HFA INHALER IH PRN (21:24)
[2017-04-12] MEDS: GABAPENTIN 400 MG CAPSULE (FP) PO SCH (23:30)
[2017-04-12] MEDS: PREGABALIN 75 MG CAPSULE PO SCH (23:30)
[2017-04-12] MEDS: PHENobarbital 30 MG TABLET PO SCH (23:30)
[2017-04-12] MEDS: THIAMINE HCL 100 MG TABLET (FP) PO SCH (23:31)
[2017-04-13 01:23] LABS: URINE APPEARANCE SLCLOUDY; URINE BILIRUBIN NEGATIVE (NEGATIVE); URINE BLOOD NEGATIVE (NEGATIVE); URINE COLOR DKYELLOW; URINE GLUCOSE (UA) NEGATIVE (NEGATIVE); URINE KETONE NEGATIVE (NEGATIVE); URINE NITRITE NEGATIVE (NEGATIVE); URINE PROTEIN NEGATIVE (NEGATIVE)
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
[2017-04-13] MEDS: NICOTINE POLACRILEX 4 MG GUM BC PRN ×3 (06:34→14:41)
[2017-04-13] MEDS: GABAPENTIN 400 MG CAPSULE (FP) PO SCH ×3 (06:34→22:01)
[2017-04-13] MEDS ORDERED: METHADONE HCL 10 MG TABLET PO SCH (07:45)
[2017-04-13] MEDS ORDERED: METHADONE HCL 10 MG TABLET ONE (07:56)
[2017-04-13] MEDS ORDERED: METHADONE HCL 40 MG DISPERSABLE TABLET ONE (07:56)
[2017-04-13] MEDS: METHADONE 40 MG, METHADONE 30 MG PO SCH (08:02)
[2017-04-13 08:44] LABS: URINE LEUK ESTERASE Negative (NEGATIVE)
[2017-04-13] MEDS: PRENATAL VITAMINS W/ FOLIC ACID TABLET (FP) PO SCH (09:45)
[2017-04-13] MEDS: PHENobarbital 30 MG TABLET PO SCH ×2 (09:45→22:02)
[2017-04-13] MEDS: PREGABALIN 75 MG CAPSULE PO SCH ×2 (09:45→22:01)
[2017-04-13] MEDS: NICOTINE 21 MG/24 HOURS TOPICAL PATCH TD SCH (09:47)
[2017-04-13 12:38] LABS: MCH 30.1 pg (25.7-33.7); MCHC 33.3 g/dl (32.0-35.9); MEAN CELL VOLUME 90.4 fl (80-96); MEAN PLT VOLUME 8.2 fl (7.5-11.1); PLATELET COUNT 393 K/MM3 (134-434); RDW 14.2 % (11.9-15.9); WHITE BLOOD COUNT 6.2 K/mm3 (4.0-10.0)
[2017-04-13] MEDS: EMTRICITAB/RILPIVIRINE/TENOFOV 1 EACH TABLET PO SCH (12:38)
[2017-04-13 12:40] LABS: ALBUMIN 3.6 g/dl (3.4-5.0); ALK PHOS 87 U/L (45-117); ANION GAP 7 (8-16); BILIRUBIN,TOTAL 0.4 mg/dL (0.2-1.0); CALCIUM 8.3 mg/dL (8.5-10.1); CO2 28 mmol/L (21-32); CREATININE 0.7 mg/dL (0.7-1.3); GLUCOSE,RANDOM 106 mg/dL (74-106); SGOT/AST 19 U/L (15-37); SGPT/ALT 23 U/L (12-78); TOT PROT 7.1 g/dl (6.4-8.2)
[2017-04-13] MEDS: DULoxetine HCL 20 MG CAPSULE.DR (FP) PO SCH (14:40)
[2017-04-13] MEDS: METHYLPHENIDATE HCL 5 MG TABLET PO SCH (18:00)
[2017-04-13] MEDS: THIAMINE HCL 100 MG TABLET (FP) PO SCH (22:02)
[2017-04-14] MEDS ORDERED: METHADONE HCL 40 MG DISPERSABLE TABLET ONE (05:23)
[2017-04-14] MEDS ORDERED: METHADONE HCL 10 MG TABLET ONE (05:23)
[2017-04-14] MEDS: METHADONE 40 MG, METHADONE 30 MG PO SCH (06:10)
[2017-04-14] MEDS: GABAPENTIN 400 MG CAPSULE (FP) PO SCH ×3 (06:10→21:34)
[2017-04-14] MEDS: EMTRICITAB/RILPIVIRINE/TENOFOV 1 EACH TABLET PO SCH (07:46)
[2017-04-14] MEDS: PRENATAL VITAMINS W/ FOLIC ACID TABLET (FP) PO SCH (10:10)
[2017-04-14] MEDS: PREGABALIN 75 MG CAPSULE PO SCH ×2 (10:11→21:34)
[2017-04-14] MEDS: PHENobarbital 30 MG TABLET PO SCH ×2 (10:12→21:34)
[2017-04-14] MEDS: DULoxetine HCL 20 MG CAPSULE.DR (FP) PO SCH (10:12)
[2017-04-14] MEDS: NICOTINE 21 MG/24 HOURS TOPICAL PATCH TD SCH (10:12)
[2017-04-14] MEDS: METHYLPHENIDATE HCL 5 MG TABLET PO SCH ×2 (10:12→16:56)
[2017-04-14] MEDS: NICOTINE POLACRILEX 4 MG GUM BC PRN ×3 (10:14→21:34)
--- NOTE | 2017-04-14 12:01 | EKG ---
Test Reason : Blood Pressure : / mmHG Vent. Rate : 058 BPM Atrial Rate : 058 BPM P-R Int : 150 ms QRS Dur : 094 ms QT Int : 418 ms P-R-T Axes : 048 074 043 degrees QTc Int : 410 ms SINUS BRADYCARDIA WITH SINUS ARRHYTHMIA OTHERWISE NORMAL ECG WHEN COMPARED WITH ECG OF 30-JAN-2017 17:34, T WAVE INVERSION NO LONGER EVIDENT IN ANTERIOR LEADS Confirmed by ABRAM DUENAS, JEREMY ([id number]) on 04/14/2017 12:00:20 PM Referred By: Confirmed By:JEREMY VALVERDE MD
[2017-04-14] MEDS: THIAMINE HCL 100 MG TABLET (FP) PO SCH (21:34)
[2017-04-15] MEDS ORDERED: METHADONE HCL 40 MG DISPERSABLE TABLET ONE (05:34)
[2017-04-15] MEDS ORDERED: METHADONE HCL 10 MG TABLET ONE (05:34)
[2017-04-15] MEDS: METHADONE 40 MG, METHADONE 30 MG PO SCH (06:04)
[2017-04-15] MEDS: GABAPENTIN 400 MG CAPSULE (FP) PO SCH ×3 (06:05→21:51)
[2017-04-15] MEDS: NICOTINE POLACRILEX 4 MG GUM BC PRN ×4 (06:07→21:52)
[2017-04-15] MEDS: EMTRICITAB/RILPIVIRINE/TENOFOV 1 EACH TABLET PO SCH (07:21)
[2017-04-15] MEDS: PHENobarbital 30 MG TABLET PO SCH ×2 (09:43→21:50)
[2017-04-15] MEDS: METHYLPHENIDATE HCL 5 MG TABLET PO SCH ×2 (09:43→17:36)
[2017-04-15] MEDS: PREGABALIN 75 MG CAPSULE PO SCH ×2 (09:43→21:51)
[2017-04-15] MEDS: NICOTINE 21 MG/24 HOURS TOPICAL PATCH TD SCH (09:46)
[2017-04-15] MEDS: DULoxetine HCL 20 MG CAPSULE.DR (FP) PO SCH (09:46)
[2017-04-15] MEDS: PRENATAL VITAMINS W/ FOLIC ACID TABLET (FP) PO SCH (09:47)
[2017-04-15] MEDS: THIAMINE HCL 100 MG TABLET (FP) PO SCH (21:51)
[2017-04-16] MEDS ORDERED: METHADONE HCL 40 MG DISPERSABLE TABLET ONE (04:55)
[2017-04-16] MEDS ORDERED: METHADONE HCL 10 MG TABLET ONE (04:55)
[2017-04-16] MEDS: METHADONE 40 MG, METHADONE 30 MG PO SCH (06:12)
[2017-04-16] MEDS: GABAPENTIN 400 MG CAPSULE (FP) PO SCH ×3 (06:13→21:08)
[2017-04-16] MEDS: NICOTINE POLACRILEX 4 MG GUM BC PRN ×4 (06:16→21:11)
[2017-04-16] MEDS: EMTRICITAB/RILPIVIRINE/TENOFOV 1 EACH TABLET PO SCH (08:03)
[2017-04-16] MEDS: PREGABALIN 75 MG CAPSULE PO SCH ×2 (10:08→21:08)
[2017-04-16] MEDS: PHENobarbital 30 MG TABLET PO SCH ×2 (10:09→21:08)
[2017-04-16] MEDS: PRENATAL VITAMINS W/ FOLIC ACID TABLET (FP) PO SCH (10:09)
[2017-04-16] MEDS: METHYLPHENIDATE HCL 5 MG TABLET PO SCH ×2 (10:09→17:01)
[2017-04-16] MEDS: NICOTINE 21 MG/24 HOURS TOPICAL PATCH TD SCH (10:10)
[2017-04-16] MEDS: DULoxetine HCL 20 MG CAPSULE.DR (FP) PO SCH (10:11)
[2017-04-16] MEDS: BACITRACIN 0.9 GM PACKET TP SCH (13:27)
[2017-04-16] MEDS: THIAMINE HCL 100 MG TABLET (FP) PO SCH (21:08)
[2017-04-17] MEDS ORDERED: METHADONE HCL 40 MG DISPERSABLE TABLET ONE (04:16)
[2017-04-17] MEDS ORDERED: METHADONE HCL 10 MG TABLET ONE (04:16)
[2017-04-17] MEDS: NICOTINE POLACRILEX 4 MG GUM BC PRN ×3 (06:21→14:23)
[2017-04-17] MEDS: METHADONE 40 MG, METHADONE 30 MG PO SCH (06:22)
[2017-04-17] MEDS: GABAPENTIN 400 MG CAPSULE (FP) PO SCH ×3 (06:22→21:17)
[2017-04-17] MEDS: EMTRICITAB/RILPIVIRINE/TENOFOV 1 EACH TABLET PO SCH (07:36)
[2017-04-17] MEDS: METHYLPHENIDATE HCL 5 MG TABLET PO SCH ×2 (09:33→17:56)
[2017-04-17] MEDS: BACITRACIN 0.9 GM PACKET TP SCH (09:33)
[2017-04-17] MEDS: DULoxetine HCL 20 MG CAPSULE.DR (FP) PO SCH (09:34)
[2017-04-17] MEDS: PHENobarbital 30 MG TABLET PO SCH ×2 (09:34→21:17)
[2017-04-17] MEDS: PRENATAL VITAMINS W/ FOLIC ACID TABLET (FP) PO SCH (09:35)
[2017-04-17] MEDS: NICOTINE 21 MG/24 HOURS TOPICAL PATCH TD SCH (09:35)
[2017-04-17] MEDS: PREGABALIN 75 MG CAPSULE PO SCH ×2 (09:35→21:17)
[2017-04-17] MEDS: THIAMINE HCL 100 MG TABLET (FP) PO SCH (21:18)
[2017-04-18] MEDS ORDERED: METHADONE HCL 40 MG DISPERSABLE TABLET ONE (03:59)
[2017-04-18] MEDS ORDERED: METHADONE HCL 10 MG TABLET ONE (03:59)
[2017-04-18] MEDS: GABAPENTIN 400 MG CAPSULE (FP) PO SCH ×3 (06:19→21:21)
[2017-04-18] MEDS: METHADONE 40 MG, METHADONE 30 MG PO SCH (06:19)
[2017-04-18] MEDS: NICOTINE POLACRILEX 4 MG GUM BC PRN ×5 (06:20→21:24)
[2017-04-18] MEDS: EMTRICITAB/RILPIVIRINE/TENOFOV 1 EACH TABLET PO SCH (07:46)
[2017-04-18] MEDS: NICOTINE 21 MG/24 HOURS TOPICAL PATCH TD SCH (09:37)
[2017-04-18] MEDS: PHENobarbital 30 MG TABLET PO SCH ×2 (09:37→21:22)
[2017-04-18] MEDS: METHYLPHENIDATE HCL 5 MG TABLET PO SCH ×2 (09:37→17:30)
[2017-04-18] MEDS: BACITRACIN 0.9 GM PACKET TP SCH (09:37)
[2017-04-18] MEDS: PRENATAL VITAMINS W/ FOLIC ACID TABLET (FP) PO SCH (09:37)
[2017-04-18] MEDS: DULoxetine HCL 20 MG CAPSULE.DR (FP) PO SCH (09:37)
[2017-04-18] MEDS: PREGABALIN 75 MG CAPSULE PO SCH ×2 (09:37→21:21)
[2017-04-18] MEDS: THIAMINE HCL 100 MG TABLET (FP) PO SCH (21:21)
[2017-04-19] MEDS ORDERED: METHADONE HCL 10 MG TABLET ONE (04:05)
[2017-04-19] MEDS ORDERED: METHADONE HCL 40 MG DISPERSABLE TABLET ONE (04:05)
[2017-04-19] MEDS: GABAPENTIN 400 MG CAPSULE (FP) PO SCH ×3 (06:18→21:28)
[2017-04-19] MEDS: METHADONE 40 MG, METHADONE 30 MG PO SCH (06:18)
[2017-04-19] MEDS: NICOTINE POLACRILEX 4 MG GUM BC PRN ×5 (06:18→21:29)
[2017-04-19] MEDS: EMTRICITAB/RILPIVIRINE/TENOFOV 1 EACH TABLET PO SCH (07:01)
[2017-04-19] MEDS: PRENATAL VITAMINS W/ FOLIC ACID TABLET (FP) PO SCH (09:36)
[2017-04-19] MEDS: NICOTINE 21 MG/24 HOURS TOPICAL PATCH TD SCH (09:37)
[2017-04-19] MEDS: DULoxetine HCL 20 MG CAPSULE.DR (FP) PO SCH (09:37)
[2017-04-19] MEDS: BACITRACIN 0.9 GM PACKET TP SCH (09:37)
[2017-04-19] MEDS: PHENobarbital 30 MG TABLET PO SCH ×2 (09:37→21:28)
[2017-04-19] MEDS: PREGABALIN 75 MG CAPSULE PO SCH ×2 (09:37→21:28)
[2017-04-19] MEDS: METHYLPHENIDATE HCL 5 MG TABLET PO SCH ×2 (10:29→17:02)
--- NOTE | 2017-04-19 13:55 | PN ---
Psychiatric Progress Note Vital Signs: Vital Signs Period Temp Pulse Resp BP Sys/Wolf Pulse Ox Last 24 Hr 97.6 F 63 18-18 98/68 Date of Session: 04/19/17 Chief Complaint:: Insomnia HPI: Patient addressing Alcohol, Cocaine and Cannabis Depencence comorbid with Opoid Dependence on Agonist Therapy, ADHD and Posttraumatic Stress Disorder Current Medications: Active Medications Generic Name Dose Route Start Last Admin Trade Name Freq PRN Reason Stop Dose Admin Acetaminophen 650 mg 04/12/17 21:20 Tylenol - PO Q4H PRN PAIN Al Hydroxide/Mg Hydroxide 30 ml 04/12/17 21:20 Mylanta Oral Suspension - PO Q6H PRN DYSPEPSIA Albuterol Sulfate 2 puff 04/12/17 21:24 Ventolin Hfa Inhaler - IH Q4H PRN SHORT OF BREATH/WHEEZING Bacitracin 0.9 gm 04/16/17 11:15 04/19/17 09:37 Bacitracin - TP 0.9 gm DAILY MARK Administration Duloxetine HCl 20 mg 04/13/17 14:07 04/19/17 09:37 Cymbalta - PO Not Given DAILY MARK Emtricitabine/Rilpivirine/Tenofovir 1 each 04/13/17 12:00 04/19/17 07:01 Complera - PO 1 each DAILY@0800 MARK Administration Eucalyptus/Menthol/Phenol/Sorbitol 1 each 04/12/17 21:20 Cepastat Lozenge - MM Q4H PRN SORE THROAT Gabapentin 800 mg 04/12/17 22:00 04/19/17 06:18 Neurontin - PO 800 mg TID MARK Administration Guaifenesin 10 ml 04/12/17 21:20 Robitussin Dm - PO Q6H PRN COUGH Ibuprofen 400 mg 04/12/17 21:20 Motrin - PO Q6H PRN SEVERE PAIN Loperamide HCl 4 mg 04/12/17 21:20 Imodium - PO Q6H PRN DIARRHEA Magnesium Citrate 300 ml 04/12/17 21:20 Citroma - PO Q48H PRN CONSTIPATION Magnesium Hydroxide 30 ml 04/12/17 21:20 Milk Of Magnesia - PO DAILY PRN CONSTIPATION Methadone HCl 40 mg/ Methadone 70 mg 04/19/17 06:00 04/19/17 06:18 HCl 30 mg PO 70 mg DAILY@0600 MARK Administration Methylphenidate HCl 5 mg 04/13/17 17:00 04/19/17 10:29 Ritalin - PO 04/20/17 16:59 5 mg BID@1000,1700 MARK Administration Nicotine 21 mg 04/13/17 10:00 04/19/17 09:37 Nicoderm Patch - TD 21 mg DAILY MARK Administration Nicotine Polacrilex 4 mg 04/12/17 21:20 04/19/17 13:30 Nicorette Gum - BC 4 mg Q2H PRN Administration NICOTINE REPLACEMENT RX Phenobarbital 60 mg 04/12/17 22:00 04/19/17 09:37 Phenobarbital - PO 60 mg BID MARK Administration Pregabalin 150 mg 04/12/17 22:00 04/19/17 09:37 Lyrica - PO 150 mg BID MARK Administration Multivit/Folic Acid/Iron 1 tab 04/13/17 10:00 04/19/17 09:36 Vitamins (Sjr) - PO 1 tab DAILY MARK Administration Pseudoephedrine/Triprolidine 1 combo 04/12/17 21:20 Actifed - PO TID PRN NASAL CONGESTION Thiamine HCl 100 mg 04/12/17 22:00 04/18/17 21:21 Vitamin B1 - PO 100 mg HS MARK Administration Current Side Effect: No Lab tests ordered: Yes Lab tests reviewed: Yes Provider note:: Patient reports experiencing difficulty to sleep. Told web content writer that he has been sleeping poorly and requests to take Zolpidem. He was told that he can be ordered Belsomra which has same hypnotic properties as Zolpidem since we do not use Zolpidem in rehab. Benefits vs Risks of Belsomra discussed with patient and he agreed to try it. Can Bander Operator was made aware by nursing staff that patient has been refusing Cymbalta for a few days. This was discussed with patient as well and he does not want to take it Total face to face time:: 25 Mental Status Exam - Mental Status Exam Alert and Oriented to: Time, Place, Person Cognitive Function: Fair Patient Appearance: Well Groomed Mood: Hopeful, Euthymic Affect: Appropriate Patient Behavior: Cooperative Speech Pattern: Clear Voice Loudness: Normal Thought Process: Intact, Goal Oriented Thought Disorder: Not Present Hallucinations: Denies Suicidal Ideation: Denies Insight/Judgement: Fair Sleep: Poorly Appetite: Good Muscle strength/Tone: Normal Gait/Station: Normal Psychiatric Treatment Plan - Problem List (1) Alcohol dependence Current Visit: Yes (2) Cocaine dependence Current Visit: No (3) Cannabis dependence Current Visit: No (4) Opioid dependence on agonist therapy Current Visit: Yes (5) Nicotine dependence Current Visit: Yes (6) ADHD (attention deficit hyperactivity disorder) Current Visit: Yes (7) PTSD (post-traumatic stress disorder) Current Visit: Yes (8) HIV (human immunodeficiency virus infection) Current Visit: Yes (9) Neuropathy Current Visit: Yes (10) Seizure disorder Current Visit: Yes (11) Asthma Current Visit: Yes (12) History of mandibular surgery Current Visit: Yes Initial treatment plan: 1) Start Belsomra 10 mg po HS prn for insomnia. 2) Discontinue Cymbalta. 3) Monitor progress
[2017-04-19] MEDS: THIAMINE HCL 100 MG TABLET (FP) PO SCH (21:28)
[2017-04-19] MEDS: SUVOREXANT 10 MG TABLET PO PRN (21:28)
[2017-04-20] MEDS ORDERED: METHADONE HCL 40 MG DISPERSABLE TABLET ONE (03:42)
[2017-04-20] MEDS ORDERED: METHADONE HCL 10 MG TABLET ONE (03:42)
[2017-04-20] MEDS: NICOTINE POLACRILEX 4 MG GUM BC PRN ×5 (05:56→21:09)
[2017-04-20] MEDS: GABAPENTIN 400 MG CAPSULE (FP) PO SCH ×3 (05:56→21:07)
[2017-04-20] MEDS: METHADONE 40 MG, METHADONE 30 MG PO SCH (05:56)
[2017-04-20] MEDS: EMTRICITAB/RILPIVIRINE/TENOFOV 1 EACH TABLET PO SCH (07:07)
[2017-04-20] MEDS: METHYLPHENIDATE HCL 5 MG TABLET PO SCH ×2 (09:44→17:05)
[2017-04-20] MEDS: BACITRACIN 0.9 GM PACKET TP SCH (09:44)
[2017-04-20] MEDS: PREGABALIN 75 MG CAPSULE PO SCH ×2 (09:45→21:07)
[2017-04-20] MEDS: NICOTINE 21 MG/24 HOURS TOPICAL PATCH TD SCH (09:45)
[2017-04-20] MEDS: PRENATAL VITAMINS W/ FOLIC ACID TABLET (FP) PO SCH (09:45)
[2017-04-20] MEDS: PHENobarbital 30 MG TABLET PO SCH ×2 (09:45→21:07)
[2017-04-20] MEDS: THIAMINE HCL 100 MG TABLET (FP) PO SCH (21:07)
[2017-04-20] MEDS: SUVOREXANT 10 MG TABLET PO PRN (21:08)
[2017-04-21] MEDS ORDERED: METHADONE HCL 40 MG DISPERSABLE TABLET ONE (03:53)
[2017-04-21] MEDS ORDERED: METHADONE HCL 10 MG TABLET ONE (03:53)
[2017-04-21] MEDS: METHADONE 40 MG, METHADONE 30 MG PO SCH (06:25)
[2017-04-21] MEDS: GABAPENTIN 400 MG CAPSULE (FP) PO SCH ×3 (06:25→21:05)
[2017-04-21] MEDS: EMTRICITAB/RILPIVIRINE/TENOFOV 1 EACH TABLET PO SCH (07:13)
[2017-04-21] MEDS: NICOTINE 21 MG/24 HOURS TOPICAL PATCH TD SCH (09:46)
[2017-04-21] MEDS: PREGABALIN 75 MG CAPSULE PO SCH ×2 (09:46→21:06)
[2017-04-21] MEDS: PRENATAL VITAMINS W/ FOLIC ACID TABLET (FP) PO SCH (09:46)
[2017-04-21] MEDS: PHENobarbital 30 MG TABLET PO SCH ×2 (09:46→21:06)
[2017-04-21] MEDS: BACITRACIN 0.9 GM PACKET TP SCH (09:46)
[2017-04-21] MEDS: NICOTINE POLACRILEX 4 MG GUM BC PRN (09:49)
[2017-04-21] MEDS: METHYLPHENIDATE HCL 5 MG TABLET PO SCH ×2 (09:49→17:00)
[2017-04-21] MEDS: THIAMINE HCL 100 MG TABLET (FP) PO SCH (21:05)
[2017-04-21] MEDS: SUVOREXANT 10 MG TABLET PO PRN (21:08)
[2017-04-22] MEDS ORDERED: METHADONE HCL 10 MG TABLET ONE (03:49)
[2017-04-22] MEDS ORDERED: METHADONE HCL 40 MG DISPERSABLE TABLET ONE (03:49)
[2017-04-22] MEDS: GABAPENTIN 400 MG CAPSULE (FP) PO SCH (06:21)
[2017-04-22] MEDS: METHADONE 40 MG, METHADONE 30 MG PO SCH (06:21)
[2017-04-22 07:00] VITALS: BP 116/73; PULSE 62; TEMP 97.4
[2017-04-22] MEDS: EMTRICITAB/RILPIVIRINE/TENOFOV 1 EACH TABLET PO SCH (07:04)
[2017-04-22] MEDS: METHYLPHENIDATE HCL 5 MG TABLET PO SCH (09:38)
[2017-04-22] MEDS: PREGABALIN 75 MG CAPSULE PO SCH (09:38)
[2017-04-22] MEDS: PRENATAL VITAMINS W/ FOLIC ACID TABLET (FP) PO SCH (09:39)
[2017-04-22] MEDS: PHENobarbital 30 MG TABLET PO SCH (09:39)
[2017-04-22] MEDS: NICOTINE 21 MG/24 HOURS TOPICAL PATCH TD SCH (09:39)
[2017-04-22] MEDS: NICOTINE POLACRILEX 4 MG GUM BC PRN (09:41)
[2017-04-22] MEDS: BACITRACIN 0.9 GM PACKET TP SCH (09:41)
--- NOTE | 2017-04-22 10:04 | PN ---
Psychiatric Progress Note Vital Signs: Vital Signs Period Temp Pulse Resp BP Sys/Wolf Pulse Ox Last 24 Hr 97.4 F 62 18-18 116/73 Date of Session: 04/22/17 Chief Complaint:: Discharge Note HPI: Patient addressing Alcohol, Cocaine and Cannabis Dependence comorbid with opoid Dependence on Agonist Therapy, Nicotine Dependence, ADHD and Posttraumatic Stress Disorder ROS: HIV+,Neuropathy, Seizure Disorder, Asthma were medically managed Current Medications: Active Medications Generic Name Dose Route Start Last Admin Trade Name Freq PRN Reason Stop Dose Admin Acetaminophen 650 mg 04/12/17 21:20 Tylenol - PO Q4H PRN PAIN Al Hydroxide/Mg Hydroxide 30 ml 04/12/17 21:20 Mylanta Oral Suspension - PO Q6H PRN DYSPEPSIA Albuterol Sulfate 2 puff 04/12/17 21:24 Ventolin Hfa Inhaler - IH Q4H PRN SHORT OF BREATH/WHEEZING Bacitracin 0.9 gm 04/16/17 11:15 04/22/17 09:41 Bacitracin - TP 0.9 gm DAILY MARK Administration Emtricitabine/Rilpivirine/Tenofovir 1 each 04/13/17 12:00 04/22/17 07:04 Complera - PO 1 each DAILY@0800 MARK Administration Eucalyptus/Menthol/Phenol/Sorbitol 1 each 04/12/17 21:20 Cepastat Lozenge - MM Q4H PRN SORE THROAT Gabapentin 800 mg 04/12/17 22:00 04/22/17 06:21 Neurontin - PO 800 mg TID MARK Administration Guaifenesin 10 ml 04/12/17 21:20 Robitussin Dm - PO Q6H PRN COUGH Ibuprofen 400 mg 04/12/17 21:20 Motrin - PO Q6H PRN SEVERE PAIN Loperamide HCl 4 mg 04/12/17 21:20 Imodium - PO Q6H PRN DIARRHEA Magnesium Citrate 300 ml 04/12/17 21:20 Citroma - PO Q48H PRN CONSTIPATION Magnesium Hydroxide 30 ml 04/12/17 21:20 Milk Of Magnesia - PO DAILY PRN CONSTIPATION Methadone HCl 40 mg/ Methadone 70 mg 04/19/17 06:00 04/22/17 06:21 HCl 30 mg PO 70 mg DAILY@0600 MARK Administration Methylphenidate HCl 5 mg 04/20/17 17:00 04/22/17 09:38 Ritalin - PO 04/27/17 16:59 5 mg BID@1000,1700 MARK Administration Nicotine 21 mg 04/13/17 10:00 04/22/17 09:39 Nicoderm Patch - TD 21 mg DAILY MARK Administration Nicotine Polacrilex 4 mg 04/12/17 21:20 04/22/17 09:41 Nicorette Gum - BC 4 mg Q2H PRN Administration NICOTINE REPLACEMENT RX Phenobarbital 60 mg 04/12/17 22:00 04/22/17 09:39 Phenobarbital - PO 60 mg BID MARK Administration Pregabalin 150 mg 04/12/17 22:00 04/22/17 09:38 Lyrica - PO 150 mg BID MARK Administration Multivit/Folic Acid/Iron 1 tab 04/13/17 10:00 04/22/17 09:39 Vitamins (Sjr) - PO 1 tab DAILY MARK Administration Pseudoephedrine/Triprolidine 1 combo 04/12/17 21:20 Actifed - PO TID PRN NASAL CONGESTION Thiamine HCl 100 mg 04/12/17 22:00 04/21/17 21:05 Vitamin B1 - PO 100 mg HS MARK Administration Current Side Effect: No Lab tests ordered: Yes Lab tests reviewed: Yes Provider note:: Patient has completed this program today. He has met his treatment goals and will continuee to address his issues in outpatient treatment at [facility]. Told consumer loan underwriter that from his participation in this program, he has learned:" No matter where you're at, whom you're with, when it is time to quit, you have to quit". He responded well to Ritalin 5 mg po BID and Belsomra 10 mg po HS prn for insomnia. He was on Cymbalta which he opted to discontinue because he did not want tcontinue with it. No script was transmitted to his pharmacy since he susy resume Adderall which is his home medication and which he has enough supply of. He is stable for discharge today Total face to face time:: 35 Mental Status Exam - Mental Status Exam Alert and Oriented to: Time, Place, Person Cognitive Function: Fair Patient Appearance: Well Groomed Mood: Hopeful, Euthymic Affect: Appropriate Patient Behavior: Cooperative Speech Pattern: Clear Voice Loudness: Normal Thought Process: Intact, Goal Oriented Thought Disorder: Not Present Hallucinations: Denies Suicidal Ideation: Denies Homicidal Ideation: Denies Insight/Judgement: Fair Sleep: Fair Appetite: Good Muscle strength/Tone: Normal Gait/Station: Normal Psychiatric Treatment Plan - Problem List (1) Alcohol dependence Current Visit: Yes (2) Cocaine dependence Current Visit: No (3) Cannabis dependence Current Visit: No (4) Opioid dependence on agonist therapy Current Visit: Yes (5) Nicotine dependence Current Visit: Yes (6) ADHD (attention deficit hyperactivity disorder) Current Visit: Yes (7) PTSD (post-traumatic stress disorder) Current Visit: Yes (8) HIV (human immunodeficiency virus infection) Current Visit: Yes (9) Neuropathy Current Visit: Yes (10) Seizure disorder Current Visit: Yes (11) Asthma Current Visit: Yes (12) History of mandibular surgery Current Visit: Yes Initial treatment plan: Patient is discharged today and referred back to [facility] for outpatient treatment
== END 2017-04-22 10:35 | disposition home or self-care (01) | DRG 772 ==
LOC: YASAS 14:23 → Y3W 22:01
PROVIDERS: ADMIT Psychiatry & Neurology Psychiatry; ATTEND Psychiatry & Neurology Psychiatry
PROC: HZ42ZZZ Group Counseling for Substance Abuse Treatment, Cognitive-Behavioral (ICD-10-PCS; principal; 2017-04-12)
DX: F10.20 Alcohol dependence, uncomplicated (principal); F11.20 Opioid dependence, uncomplicated; F14.20 Cocaine dependence, uncomplicated; F12.20 Cannabis dependence, uncomplicated; F17.210 Nicotine dependence, cigarettes, uncomplicated; F90.9 Attention-deficit hyperactivity disorder, unspecified type; F43.10 Post-traumatic stress disorder, unspecified; Z21 Asymptomatic human immunodeficiency virus [HIV] infection status; G62.9 Polyneuropathy, unspecified; G40.909 Epilepsy, unspecified, not intractable, without status epilepticus; J45.909 Unspecified asthma, uncomplicated; Z88.8 Allergy status to other drugs, medicaments and biological substances; Z91.041 Radiographic dye allergy status; Z87.898 Personal history of other specified conditions
CPT/HCPCS: 36415; 80053; 80307; 81003; 85027; 86593; 93005; 93010